=== PATIENT | female | born 1950 | race African-American/Black ===

== ENCOUNTER 2022-10-11 09:44 | Inpatient (IN) | payer MEDICARE, MEDICAID ==
[~2022-10-11] VITALS: Ht 167.6 cm; Wt 57.2 kg
[2022-10-11] MEDS ORDERED: SODIUM CHLORIDE 0.9% 1,000 ML IV ONE (10:15)
[2022-10-11] MEDS ORDERED: LABETALOL 5MG/ML SYR 20 MG/4 ML SYRINGE IV ONE (10:15)
[2022-10-11 10:34] LABS: BG BASE EXCESS -6.2 mmol/L (-2.0-2.0); BG CARBOXYHEMOGLOBIN 1.3 % (0.5-1.5); BG DEOXYHEMOGLOBIN 3.1 % (0.0-5.0); BG FRACTION INSPIRED OXYGEN 21; BG HCO3 ACT 18.1 mmol/L (22.0-26.0); BG METHEMOGLOBIN 0.5 % (0.0-1.5); BG OXYGEN SATURATION 96.8 % (92.0-98.5); BG OXYHEMOGLOBIN 95.1 % (94.0-97.0); BG PCO2 32.7 mmHg (35.0-45.0); BG PO2 90.9 mmHg (75.0-100.0); BG SAMPLE SITE RIGHT BRACHIAL; BG TOTAL HEMOGLOBIN 15.2 g/dL (12.0-18.0); BG VENT MODE ROOM AIR
[2022-10-11 10:54] LABS: HEMATOCRIT. 49.6 % (36.0-48.0); HEMOGLOBIN. 14.6 g/dL (12.0-16.0); MEAN CORPUSCULAR HEMOGLOBIN 21.2 pg (28.0-32.0); MEAN CORPUSCULAR VOLUME 71.9 fL (81.0-99.0); MEAN PLATELET VOLUME 10.7 fl (7.4-10.4); PLATELET 289 x1000/uL (130-400); RED CELL DISTRIBUTION WIDTH 17.6 % (11.6-14.6)
[2022-10-11 11:11] LABS: CHLORIDE 95 mEq/L (98-107)
[2022-10-11 11:59] LABS: PLATELET ESTIMATE NORMAL
[2022-10-11] MEDS ORDERED: POTASSIUM CHLORIDE 20MEQ TABLET SR PO ONE (12:45)
[2022-10-11] MEDS ORDERED: INSULIN REGULAR (DRIP) 100 UNITS in SODIUM CHLORIDE 0.9% 99 ML IV SCH (12:45)
[2022-10-11 13:00] LABS: BETA HYDROXYBUTYRATE 4.7 mMol/L (0.0-0.3)
[2022-10-11] MEDS ORDERED: BLOOD SUGAR DIAGNOSTIC STRIP TEST SCH (13:00)
[2022-10-11] MEDS ORDERED: DEXTROSE 50% WATER 50ML (25GM) IV PRN ×2 (13:00→21:45)
[2022-10-11] MEDS ORDERED: INSULIN REGULAR 100U/100ML PMX 100 ML IV SCH ×2 (13:00→21:45)
[2022-10-11] MEDS ORDERED: DEXTROSE 50% WATER 25ML (12.5GM) IV PRN ×2 (13:00→21:45)
[2022-10-11] MEDS ORDERED: NITROGLYCERIN 0.4MG TABLET SL SL PRN (13:45)
[2022-10-11] MEDS ORDERED: MAGNESIUM/ALUMINUM HYDROXIDE/SIMETHICONE 30ML UDC PO PRN (13:45)
[2022-10-11] MEDS ORDERED: ACETAMINOPHEN 325MG TABLET PO PRN (13:45)
[2022-10-11] MEDS ORDERED: GUAIFENESIN 200MG/10ML SUGAR FREE UDC PO PRN (13:45)
[2022-10-11] MEDS ORDERED: ONDANSETRON HCL 4MG/2ML INJ IV PRN (13:45)
[2022-10-11] MEDS ORDERED: DOCUSATE SODIUM 100MG CAPSULE PO PRN (13:45)
[2022-10-11] MEDS ORDERED: ZOLPIDEM TARTRATE 5MG TABLET PO PRN (13:45)
[2022-10-11] MEDS ORDERED: IPRATROPIUM/ALBUTEROL 0.5-3(2.5)MG/3ML NEB NEB PRN (13:45)
[2022-10-11] MEDS: AMLODIPINE 10MG TABLET PO SCH (14:08)
[2022-10-11 14:26] LABS: CLARITY URINE CLEAR (CLEAR); COLOR URINE YELLOW (YELLOW); KETONES URINE 1+ (NEGATIVE); LEUKOCYTE ESTERASE URINE NEGATIVE (NEGATIVE); NITRITE URINE NEGATIVE (NEGATIVE); OCCULT BLOOD URINE TRACE (NEGATIVE); PROTEIN URINE 1+ (NEGATIVE); UROBILINOGEN URINE 0.2 E.U./dL (0.2-1.0)
[2022-10-11] MEDS ORDERED: SODIUM CHL 0.9% + KCL 20MEQ/L 1,000 ML IV SCH (15:00)
[2022-10-11 15:19] LABS: *AMPHETAMINES SCREEN URINE NEGATIVE (NEGATIVE); *BARBITURATES SCREEN URINE NEGATIVE (NEGATIVE); *BENZODIAZEPINES SCREEN URINE NEGATIVE (NEGATIVE); *COCAINE SCREEN URINE NEGATIVE (NEGATIVE); CANNABINOID URINE SCREEN NEGATIVE (NEGATIVE); METHADONE URINE SCREEN NEGATIVE (NEGATIVE); OPIATES URINE SCREEN NEGATIVE (NEGATIVE); PHENCYCLIDINE URINE SCREEN NEGATIVE (NEGATIVE)
[2022-10-11] MEDS: ENOXAPARIN 30MG/0.3ML SYR SUBCUT SCH (15:55)
[2022-10-11 16:12] LABS: T4 FREE 1.05 ng/dL (0.76-1.46)
[2022-10-11 16:21] LABS: FOLIC ACID (FOLATE) SERUM >20 ng/mL ng/mL (>5.38); VITAMIN B12 SERUM >2000 pg/mL pg/mL (211-911)
[2022-10-11 16:56] LABS: CREATINE KINASE MB FRACTION 1.5 ng/mL (0.5-3.6)
[2022-10-11] MEDS: BLOOD SUGAR DIAGNOSTIC STRIP TEST SCH ×2 (22:09→23:00)
[2022-10-11 22:25] LABS: CREATINE KINASE MB FRACTION 1.6 ng/mL (0.5-3.6)
[2022-10-11 23:00] VITALS: BP 155/69
[2022-10-11 23:15] VITALS: BP 143/77
[2022-10-11] MEDS ORDERED: ALBUTEROL (0.083%) 2.5MG/3ML NEB HHN PRN (23:15)
[2022-10-11] MEDS ORDERED: IPRATROPIUM BROMIDE (0.02%) 0.5MG/2.5ML NEB HHN PRN (23:15)
[2022-10-11 23:28] VITALS: BP 143/77
[2022-10-11 23:30] VITALS: BP 136/76
[2022-10-11 23:45] VITALS: BP 134/76
[2022-10-12] VITALS (55 sets, daily range): BP systolic 118–231; BP diastolic 26–134
[2022-10-12] MEDS: BLOOD SUGAR DIAGNOSTIC STRIP TEST SCH ×14 (01:00→21:00)
[2022-10-12 05:57] LABS: CHLORIDE 122 mEq/L (98-107)
[2022-10-12 06:03] LABS: PHOSPHORUS 2.4 mg/dL (2.5-4.9)
[2022-10-12] MEDS: CLONIDINE 0.1MG TABLET PO PRN ×4 (06:14→18:24)
[2022-10-12] MEDS: ASPIRIN 325MG EC TABLET PO SCH (08:50)
[2022-10-12] MEDS: PANTOPRAZOLE SODIUM 40 MG/VIAL IV SCH (08:50)
[2022-10-12] MEDS: AMLODIPINE 10MG TABLET PO SCH (08:50)
[2022-10-12] MEDS ORDERED: SODIUM CHL 0.9% + KCL 20MEQ/L 1,000 ML IV SCH (09:00)
[2022-10-12] MEDS ORDERED: ENAL20TA18 MT (10:39)
[2022-10-12] MEDS ORDERED: METF625T (10:39)
[2022-10-12] MEDS ORDERED: ATEN100T MT (10:39)
[2022-10-12] MEDS ORDERED: DEXTROSE 50% WATER 50ML SYRINGE IV PRN (11:15)
[2022-10-12] MEDS: INSULIN GLARGINE 100 UNITS/ML SUBCUT SCH ×2 (12:25→22:00)
[2022-10-12] MEDS: INSULIN LISPRO 100 UNITS/ML SUBCUT SCH ×5 (12:26→21:00)
[2022-10-12] MEDS: ATENOLOL 50 MG TABLET PO SCH (12:57)
[2022-10-12 13:18] LABS: HEMATOCRIT. 45.8 % (36.0-48.0); MEAN CORPUSCULAR HEMOGLOBIN 20.6 pg (28.0-32.0); MEAN CORPUSCULAR VOLUME 67.3 fL (81.0-99.0); MEAN PLATELET VOLUME 9.4 fl (7.4-10.4); PLATELET 257 x1000/uL (130-400); RED CELL DISTRIBUTION WIDTH 15.8 % (11.6-14.6)
[2022-10-12 13:43] LABS: CHLORIDE 122 mEq/L (98-107)
[2022-10-12] MEDS: ENOXAPARIN 30MG/0.3ML SYR SUBCUT SCH ×3 (14:27→18:18)
[2022-10-12 14:29] LABS: PLATELET ESTIMATE NORMAL
[2022-10-12] MEDS: SODIUM CHLORIDE 0.45% 1,000 ML IV SCH (14:38)
[2022-10-13] VITALS (76 sets, daily range): BP systolic 93–195; BP diastolic 46–102
[2022-10-13] MEDS: SODIUM CHLORIDE 0.45% 1,000 ML IV SCH ×2 (02:46→15:32)
[2022-10-13] MEDS ORDERED: NICARDIPINE 40MG/200ML PREMIX 200 ML IV PRN (05:15)
[2022-10-13 06:15] LABS: HEMATOCRIT. 50.7 % (36.0-48.0); HEMOGLOBIN. 15.8 g/dL (12.0-16.0); MEAN CORPUSCULAR HEMOGLOBIN 20.9 pg (28.0-32.0); MEAN CORPUSCULAR VOLUME 67.1 fL (81.0-99.0); RED BLOOD CELL COUNT 7.55 mill/uL (4.2-5.4); RED CELL DISTRIBUTION WIDTH 15.8 % (11.6-14.6)
[2022-10-13 06:18] LABS: CHLORIDE 120 mEq/L (98-107)
[2022-10-13 06:27] LABS: PHOSPHORUS 2.5 mg/dL (2.5-4.9)
[2022-10-13 07:30] LABS: MEAN PLATELET VOLUME 10.4 fl (7.4-10.4); PLATELET 251 x1000/uL (130-400)
[2022-10-13] MEDS: BLOOD SUGAR DIAGNOSTIC STRIP TEST SCH ×4 (07:53→21:07)
[2022-10-13] MEDS: ATENOLOL 50 MG TABLET PO SCH (08:23)
[2022-10-13] MEDS: AMLODIPINE 10MG TABLET PO SCH (08:23)
[2022-10-13] MEDS: PANTOPRAZOLE SODIUM 40 MG/VIAL IV SCH (08:23)
[2022-10-13] MEDS: ASPIRIN 325MG EC TABLET PO SCH (08:23)
[2022-10-13] MEDS: INSULIN LISPRO 100 UNITS/ML SUBCUT SCH ×7 (08:25→21:00)
[2022-10-13] MEDS: LOSARTAN POTASSIUM 100 MG TABLET PO SCH (09:46)
[2022-10-13] MEDS: INSULIN GLARGINE 100 UNITS/ML SUBCUT SCH ×2 (10:00→21:07)
[2022-10-13 13:06] LABS: PLATELET ESTIMATE NORMAL
[2022-10-13 15:26] LABS: CLARITY URINE CLOUDY (CLEAR); COLOR URINE YELLOW (YELLOW); KETONES URINE TRACE (NEGATIVE); LEUKOCYTE ESTERASE URINE 2+ (NEGATIVE); NITRITE URINE NEGATIVE (NEGATIVE); OCCULT BLOOD URINE 1+ (NEGATIVE); PROTEIN URINE 3+ (NEGATIVE); SPECIFIC GRAVITY URINE 1.022 (1.005-1.030); UROBILINOGEN URINE 0.2 E.U./dL (0.2-1.0)
[2022-10-13] MEDS: ENOXAPARIN 30MG/0.3ML SYR SUBCUT SCH (15:32)
[2022-10-13] MEDS: DOXAZOSIN MESYLATE 4MG TABLET PO SCH (21:12)
[2022-10-13] MEDS ORDERED: NICARDIPINE 50 MG in SODIUM CHLORIDE 0.9% 250 ML IV PRN (22:00)
[2022-10-14] VITALS (52 sets, daily range): BP systolic 110–178; BP diastolic 49–126
[2022-10-14] MEDS: INSULIN LISPRO 100 UNITS/ML SUBCUT SCH ×7 (07:50→20:33)
[2022-10-14] MEDS: BLOOD SUGAR DIAGNOSTIC STRIP TEST SCH ×4 (07:54→20:07)
[2022-10-14] MEDS: ASPIRIN 325MG EC TABLET PO SCH (08:18)
[2022-10-14] MEDS: ATENOLOL 50 MG TABLET PO SCH (08:18)
[2022-10-14] MEDS: AMLODIPINE 10MG TABLET PO SCH (08:19)
[2022-10-14] MEDS: LOSARTAN POTASSIUM 100 MG TABLET PO SCH (08:19)
[2022-10-14] MEDS: SODIUM CHLORIDE 0.45% 1,000 ML IV SCH ×2 (08:19→19:20)
[2022-10-14] MEDS: PANTOPRAZOLE SODIUM 40 MG/VIAL IV SCH (08:19)
[2022-10-14 09:44] LABS: HEMATOCRIT 42.8 % (36.0-48.0); HEMOGLOBIN 13.4 g/dL (12.0-16.0); MEAN CORPUSCULAR HEMOGLOBIN 21.1 pg (28.0-32.0); MEAN CORPUSCULAR VOLUME 67.2 fL (81.0-99.0); PLATELET 175 x1000/uL (130-400); RED BLOOD CELL COUNT 6.37 mill/uL (4.2-5.4); RED CELL DISTRIBUTION WIDTH 15.6 % (11.6-14.6)
[2022-10-14] MEDS: INSULIN GLARGINE 100 UNITS/ML SUBCUT SCH (09:47)
[2022-10-14] MEDS: SUCRALFATE 1G TABLET PO SCH ×4 (09:47→20:07)
[2022-10-14 10:04] LABS: PHOSPHORUS 2.6 mg/dL (2.5-4.9)
[2022-10-14] MEDS: ENOXAPARIN 30MG/0.3ML SYR SUBCUT SCH (15:16)
[2022-10-14] MEDS: DOXAZOSIN MESYLATE 4MG TABLET PO SCH (20:32)
[2022-10-15] VITALS (24 sets, daily range): BP systolic 113–185; BP diastolic 52–85
[2022-10-15 05:39] LABS: BASOPHILS % 0.1 % (0.0-2.0); EOSINOPHILS % 0.2 % (0.0-5.0); HEMATOCRIT. 38.6 % (36.0-48.0); HEMOGLOBIN. 12.1 g/dL (12.0-16.0); LYMPHOCYTES % 8.3 % (20.0-50.0); MEAN CORPUSCULAR HEMOGLOBIN 20.9 pg (28.0-32.0); MEAN CORPUSCULAR VOLUME 66.7 fL (81.0-99.0); MEAN PLATELET VOLUME 9.5 fl (7.4-10.4); MONOCYTES % 4.6 % (2.0-8.0); NEUTROPHILS % 86.8 % (40.0-76.0); PLATELET 161 x1000/uL (130-400); RED BLOOD CELL COUNT 5.79 mill/uL (4.2-5.4); RED CELL DISTRIBUTION WIDTH 15.6 % (11.6-14.6)
[2022-10-15 06:03] LABS: CHLORIDE 111 mEq/L (98-107)
[2022-10-15 06:09] LABS: PHOSPHORUS 2.3 mg/dL (2.5-4.9)
[2022-10-15] MEDS: ATENOLOL 50 MG TABLET PO SCH (08:11)
[2022-10-15] MEDS: ASPIRIN 325MG EC TABLET PO SCH (08:11)
[2022-10-15] MEDS: SUCRALFATE 1G TABLET PO SCH ×4 (08:11→22:59)
[2022-10-15] MEDS: LOSARTAN POTASSIUM 100 MG TABLET PO SCH (08:11)
[2022-10-15] MEDS: INSULIN LISPRO 100 UNITS/ML SUBCUT SCH ×7 (08:11→21:00)
[2022-10-15] MEDS: PANTOPRAZOLE SODIUM 40 MG/VIAL IV SCH (08:12)
[2022-10-15] MEDS: BLOOD SUGAR DIAGNOSTIC STRIP TEST SCH ×4 (08:12→21:00)
[2022-10-15] MEDS: AMLODIPINE 10MG TABLET PO SCH (08:13)
[2022-10-15] MEDS: INSULIN GLARGINE 100 UNITS/ML SUBCUT SCH (09:20)
[2022-10-15] MEDS ORDERED: CEFTRIAXONE 1 G PREMIX 50 ML IV SCH (09:45)
[2022-10-15] MEDS ORDERED: SUCR1TAB30 PO (10:26)
[2022-10-15] MEDS ORDERED: AMLO10TA80 PO (10:26)
[2022-10-15] MEDS ORDERED: LIP40 MT (10:26)
[2022-10-15] MEDS ORDERED: DOXA4TAB2 PO (10:26)
[2022-10-15] MEDS ORDERED: ASPI-1406 MT (10:26)
[2022-10-15] MEDS ORDERED: INSLIS SUBCUT (10:26)
[2022-10-15] MEDS ORDERED: LOSA100T3 PO (10:26)
[2022-10-15] MEDS ORDERED: LEVO-65 MT (10:26)
[2022-10-15] MEDS ORDERED: LANTUSUD SUBCUT (10:26)
[2022-10-15] MEDS ORDERED: ASPI-867 PO (10:26)
[2022-10-15] MEDS: CEFTRIAXONE 1,000 MG in DEXTROSE 5% WATER 50 ML IV SCH (13:55)
[2022-10-15] MEDS: ENOXAPARIN 30MG/0.3ML SYR SUBCUT SCH (15:32)
[2022-10-15] MEDS: DOXAZOSIN MESYLATE 4MG TABLET PO SCH (22:59)
[2022-10-16] VITALS: BP 135/77
[2022-10-16 04:00] VITALS: BP 165/75
[2022-10-16] MEDS: BLOOD SUGAR DIAGNOSTIC STRIP TEST SCH ×4 (06:50→21:33)
[2022-10-16] MEDS: INSULIN LISPRO 100 UNITS/ML SUBCUT SCH ×7 (06:50→21:17)
[2022-10-16 08:00] VITALS: BP 139/50
[2022-10-16] MEDS: SUCRALFATE 1G TABLET PO SCH ×4 (09:55→20:52)
[2022-10-16] MEDS: LOSARTAN POTASSIUM 100 MG TABLET PO SCH (09:55)
[2022-10-16] MEDS: CEFTRIAXONE 1,000 MG in DEXTROSE 5% WATER 50 ML IV SCH (09:55)
[2022-10-16] MEDS: FAMOTIDINE 20MG/2ML VIAL IV SCH (09:55)
[2022-10-16] MEDS: ATENOLOL 50 MG TABLET PO SCH (09:56)
[2022-10-16] MEDS: ASPIRIN 325MG EC TABLET PO SCH (09:56)
[2022-10-16] MEDS: AMLODIPINE 10MG TABLET PO SCH (09:56)
[2022-10-16 12:00] VITALS: BP 163/87
[2022-10-16] MEDS: INSULIN GLARGINE 100 UNITS/ML SUBCUT SCH (12:41)
[2022-10-16 16:00] VITALS: BP 163/87
[2022-10-16] MEDS: ENOXAPARIN 30MG/0.3ML SYR SUBCUT SCH (18:55)
[2022-10-16 20:00] VITALS: BP 165/75
[2022-10-16] MEDS: DOXAZOSIN MESYLATE 4MG TABLET PO SCH (20:53)
[2022-10-17] VITALS (8 sets, daily range): BP systolic 82–143; BP diastolic 34–71
[2022-10-17] MEDS: INSULIN LISPRO 100 UNITS/ML SUBCUT SCH ×7 (06:50→21:36)
[2022-10-17] MEDS: BLOOD SUGAR DIAGNOSTIC STRIP TEST SCH ×4 (07:07→21:23)
[2022-10-17] MEDS: INSULIN GLARGINE 100 UNITS/ML SUBCUT SCH (09:18)
[2022-10-17] MEDS: ATENOLOL 50 MG TABLET PO SCH (09:27)
[2022-10-17] MEDS: LOSARTAN POTASSIUM 100 MG TABLET PO SCH (09:27)
[2022-10-17] MEDS: SUCRALFATE 1G TABLET PO SCH ×4 (09:27→21:20)
[2022-10-17] MEDS: AMLODIPINE 10MG TABLET PO SCH (09:27)
[2022-10-17] MEDS: ASPIRIN 325MG EC TABLET PO SCH (09:27)
[2022-10-17] MEDS: FAMOTIDINE 20MG/2ML VIAL IV SCH (10:22)
[2022-10-17] MEDS: CEFTRIAXONE 1,000 MG in DEXTROSE 5% WATER 50 ML IV SCH (10:22)
[2022-10-17] MEDS: ENOXAPARIN 30MG/0.3ML SYR SUBCUT SCH (16:44)
[2022-10-17] MEDS: DOXAZOSIN MESYLATE 4MG TABLET PO SCH (21:20)
[2022-10-18 04:00] VITALS: BP 142/59
[2022-10-18] MEDS: BLOOD SUGAR DIAGNOSTIC STRIP TEST SCH ×4 (06:07→21:00)
[2022-10-18] MEDS: INSULIN LISPRO 100 UNITS/ML SUBCUT SCH ×7 (06:09→21:21)
[2022-10-18 08:00] VITALS: BP 132/65
[2022-10-18] MEDS: CEFTRIAXONE 1,000 MG in DEXTROSE 5% WATER 50 ML IV SCH (08:58)
[2022-10-18] MEDS: LOSARTAN POTASSIUM 100 MG TABLET PO SCH (08:59)
[2022-10-18] MEDS: FAMOTIDINE 20MG/2ML VIAL IV SCH (08:59)
[2022-10-18] MEDS: SUCRALFATE 1G TABLET PO SCH ×4 (08:59→21:14)
[2022-10-18] MEDS: ASPIRIN 325MG EC TABLET PO SCH (08:59)
[2022-10-18] MEDS: ATENOLOL 50 MG TABLET PO SCH (09:00)
[2022-10-18] MEDS: AMLODIPINE 10MG TABLET PO SCH (09:03)
[2022-10-18] MEDS: INSULIN GLARGINE 100 UNITS/ML SUBCUT SCH (09:09)
[2022-10-18 12:00] VITALS: BP 122/49
[2022-10-18] MEDS: ENOXAPARIN 30MG/0.3ML SYR SUBCUT SCH (15:22)
[2022-10-18 15:41] VITALS: BP 113/76
[2022-10-18] MEDS ORDERED: FAMOTIDINE 20MG TABLET PO SCH (19:35)
[2022-10-18 20:00] VITALS: BP 118/68
[2022-10-18] MEDS: DOXAZOSIN MESYLATE 4MG TABLET PO SCH (21:14)
[2022-10-19] VITALS: BP 117/52
[2022-10-19 04:27] VITALS: BP 121/64
[2022-10-19] MEDS: ACETAMINOPHEN 325MG TABLET PO PRN ×2 (04:32→09:26)
[2022-10-19] MEDS: BLOOD SUGAR DIAGNOSTIC STRIP TEST SCH ×4 (06:09→16:50)
[2022-10-19] MEDS: INSULIN LISPRO 100 UNITS/ML SUBCUT SCH ×8 (06:09→18:02)
[2022-10-19 08:00] VITALS: BP 102/70
[2022-10-19] MEDS: INSULIN GLARGINE 100 UNITS/ML SUBCUT SCH (09:00)
[2022-10-19] MEDS: ATENOLOL 50 MG TABLET PO SCH (09:00)
[2022-10-19] MEDS: LOSARTAN POTASSIUM 100 MG TABLET PO SCH (09:00)
[2022-10-19] MEDS: AMLODIPINE 10MG TABLET PO SCH (09:00)
[2022-10-19] MEDS ORDERED: FAMOTIDINE 20MG TABLET PO SCH (09:00)
[2022-10-19] MEDS: SUCRALFATE 1G TABLET PO SCH ×3 (09:25→17:00)
[2022-10-19] MEDS: CEFTRIAXONE 1,000 MG in DEXTROSE 5% WATER 50 ML IV SCH (09:25)
[2022-10-19] MEDS: ASPIRIN 325MG EC TABLET PO SCH (09:26)
[2022-10-19 12:00] VITALS: BP 138/50
[2022-10-19] MEDS: ENOXAPARIN 30MG/0.3ML SYR SUBCUT SCH (14:54)
[2022-10-19 16:00] VITALS: BP 135/58
== END 2022-10-19 18:44 | disposition left against medical advice (07) | DRG 871 ==
LOC: ER 09:44 → MICUSO 13:17 → EDBEDREQ 13:24 → EDBEDREQSVC 13:24 → EDBEDREQTM 13:24 → CVICU 22:40 → 3WST 10-15 11:08
PROVIDERS: ADMIT Internal Medicine; ATTEND Internal Medicine
DX: A41.9 Sepsis, unspecified organism (principal); E11.10 Type 2 diabetes mellitus with ketoacidosis without coma; G92.8 Other toxic encephalopathy; N17.0 Acute kidney failure with tubular necrosis; I16.1 Hypertensive emergency; I50.30 Unspecified diastolic (congestive) heart failure; N39.0 Urinary tract infection, site not specified; E83.52 Hypercalcemia; E88.09 Other disorders of plasma-protein metabolism, not elsewhere classified; E11.65 Type 2 diabetes mellitus with hyperglycemia; R26.9 Unspecified abnormalities of gait and mobility; I11.0 Hypertensive heart disease with heart failure; E78.00 Pure hypercholesterolemia, unspecified; E11.42 Type 2 diabetes mellitus with diabetic polyneuropathy; Z79.4 Long term (current) use of insulin; Z53.29 Procedure and treatment not carried out because of patient's decision for other reasons
CPT/HCPCS: 36415; 36600; 70551; 71045; 76770; 80048; 80053; 80061; 80305; 81003; 82010; 82140; 82375; 82550; 82553; 82607; 82746; 82805; 82962; 83036; 83540; 83550; 83605; 83735; 83880; 83930; 84100; 84145; 84439; 84443; 84484; 85025; 85027; 87077; 87186; 93005; 93306; 93970; 97110; 97162; 97166; 97530; 97535; 99291; A6261; C1893; C9113; J0696; J1650; J1815; J2405; J3480; J3490; J7030; J7050; J7060